=== PATIENT | female | born 2000 | race Caucasian/White ===

== ENCOUNTER 2022-12-13 04:41 | Emergency (ER) | payer OTHER ==
[~2022-12-13] VITALS: Ht 167.6 cm; Wt 63.5 kg
[2022-12-13 04:49] VITALS: BP_SYST 121; PULSE 75; RESP 18; TEMP 97.4; O2SAT 99
[2022-12-13] MEDS ORDERED: ONDANSETRON HCL 4 MG/2 ML VIAL IVP ONE ×2 (05:15→07:15)
[2022-12-13] MEDS ORDERED: NACL 0.9% 1,000 ML IV ONE (05:15)
[2022-12-13] MEDS ORDERED: MORPHINE 4 MG INJ. 4 MG/ML VIAL IVP ONE (05:15)
[2022-12-13 05:23] LABS: BILIRUBIN,URINE NEGATIVE (NEGATIVE); BLOOD, URINE NEGATIVE (NEGATIVE); CLARITY/URINE TURBID (CLEAR); COLOR,URINE YELLOW (YELLOW); GLUCOSE,URINE NEGATIVE (NEGATIVE); KETONES,URINE NEGATIVE (NEGATIVE); LEUKOCYTE ESTERASE ,URINE TRACE (NEGATIVE); NITRITE, URINE NEGATIVE (NEGATIVE); PROTEIN URINE NEGATIVE (NEGATIVE); UROBILINOGEN,URINE 0.2 (0.2-1.0)
[2022-12-13 05:42] LABS: BASOPHILS # (AUTO) 0.1 K/uL (0.0-0.2); BASOPHILS % (AUTO) 0.9 % (0.0-2.0); EOSINOPHILS # (AUTO) 1.3 K/uL (0.0-0.4); EOSINOPHILS % (AUTO) 11.6 % (0.0-4.0); HEMATOCRIT 35.5 % (36-48); HEMOGLOBIN 11.5 g/dL (12.0-16.0); LYMPHOCYTES # (AUTO) 2.8 K/uL (1.0-5.5); LYMPHOCYTES % (AUTO) 24.2 % (20.5-51.5); MEAN CORPUSCULAR HEMOGLOBIN 26 pg (27-31); MEAN CORPUSCULAR HGB CONC 32 % (32-36); MEAN CORPUSCULAR VOLUME 81 fL (79.0-98.0); MONOCYTES % (AUTO) 8.3 % (1.7-9.3); NEUTROPHILS # (AUTO) 6.4 K/uL (1.8-7.7); PLATELET COUNT (AUTO) 514 K/uL (130-430); RED BLOOD CELL COUNT(AUTO) 4.38 MIL/uL (4.2-6.2); RED CELL DISTRIBUTION WIDTH 14.7 % (9.0-15.0); WHITE BLOOD COUNT (AUTO) 11.6 K/uL (4.8-10.8)
[2022-12-13 05:59] LABS: BACTERIA,URINE MODERATE /HPF (None Seen); RBC,URINE 0-3 /HPF (0-3)
[2022-12-13 06:04] LABS: CALCIUM 9.7 mg/dL (8.4-11.0); CREATININE 0.71 mg/dL (0.55-1.30)
[2022-12-13 06:09] LABS: ALBUMIN 3.6 g/dL (3.4-4.8); TOTAL BILIRUBIN 0.2 mg/dL (0.0-1.0); TOTAL PROTEIN, SERUM 7.8 g/dL (6.4-8.3)
[2022-12-13] MEDS ORDERED: LR 1,000 ML IV STA (06:14)
[2022-12-13] MEDS ORDERED: POTASSIUM CHLORIDE 20 MEQ/PKT PACKET PO ONE (06:15)
[2022-12-13] MEDS ORDERED: METR-154 PO (07:52)
[2022-12-13] MEDS ORDERED: CIPR500T5 PO (07:52)
[2022-12-13 08:07] VITALS: BP_SYST 138; PULSE 93; RESP 16; TEMP 97.6; O2SAT 100
== END 2022-12-13 08:06 | disposition home or self-care (01) ==
LOC: SED 04:41
DX: N39.0 Urinary tract infection, site not specified (principal); R10.84 Generalized abdominal pain; R74.8 Abnormal levels of other serum enzymes; R11.10 Vomiting, unspecified; Z79.899 Other long term (current) drug therapy
CPT/HCPCS: 99285; 74176; 96374; 96361; 96375; 80053; 81001; 83690; 85025; 87086; 36415; 76376; 96376; 81025; 81000; 81015; J2405; J2270; J7030

== ENCOUNTER 2022-12-18 01:08 | Inpatient (IN) | payer OTHER ==
[2022-12-18] VITALS (7 sets, daily range): BP systolic 105–119; PULSE 66–85; RESP 16–18; TEMP 97.9–98.9; O2SAT 96–100
[~2022-12-18] VITALS: Ht 167.6 cm; Wt 64.4 kg
[~2022-12-18 01:08] MED LIST: CIPR500T5 PO; METR-154 PO
[2022-12-18 01:40] LABS: BILIRUBIN,URINE NEGATIVE (NEGATIVE); BLOOD, URINE NEGATIVE (NEGATIVE); COLOR,URINE YELLOW (YELLOW); GLUCOSE,URINE NEGATIVE (NEGATIVE); KETONES,URINE TRACE (NEGATIVE); LEUKOCYTE ESTERASE ,URINE TRACE (NEGATIVE); NITRITE, URINE NEGATIVE (NEGATIVE); PROTEIN URINE NEGATIVE (NEGATIVE); UROBILINOGEN,URINE 0.2 (0.2-1.0)
[2022-12-18] MEDS ORDERED: MORPHINE 4 MG INJ. 4 MG/ML VIAL IVP ONE ×2 (01:45→03:15)
[2022-12-18] MEDS ORDERED: ONDANSETRON HCL 4 MG/2 ML VIAL IVP ONE (01:45)
[2022-12-18] MEDS ORDERED: FAMOTIDINE PF 20 MG/2 ML VIAL IVP ONE (01:45)
[2022-12-18 01:54] LABS: CLARITY/URINE SLIGHTLY CLOUDY (CLEAR)
[2022-12-18 01:55] LABS: BACTERIA,URINE FEW /HPF (None Seen); RBC,URINE 0-3 /HPF (0-3)
[2022-12-18] MEDS ORDERED: NACL 0.9% 1,000 ML IV ONE ×2 (02:00→03:15)
[2022-12-18 02:26] LABS: BASOPHILS # (AUTO) 0.1 K/uL (0.0-0.2); EOSINOPHILS # (AUTO) 1.3 K/uL (0.0-0.4); EOSINOPHILS % (AUTO) 13.3 % (0.0-4.0); HEMATOCRIT 30.8 % (36-48); LYMPHOCYTES # (AUTO) 2.2 K/uL (1.0-5.5); MEAN CORPUSCULAR HEMOGLOBIN 26 pg (27-31); MEAN CORPUSCULAR HGB CONC 33 % (32-36); MEAN CORPUSCULAR VOLUME 81 fL (79.0-98.0); MONOCYTES % (AUTO) 9.5 % (1.7-9.3); NEUTROPHILS # (AUTO) 5.4 K/uL (1.8-7.7); NEUTROPHILS % (AUTO) 54.2 % (40.0-70.0); PLATELET COUNT (AUTO) 418 K/uL (130-430); RED BLOOD CELL COUNT(AUTO) 3.79 MIL/uL (4.2-6.2)
[2022-12-18 02:32] LABS: ALBUMIN 3.1 g/dL (3.4-4.8); CREATININE 0.91 mg/dL (0.55-1.30); POTASSIUM 3.4 mmol/L (3.5-5.1); TOTAL BILIRUBIN 0.1 mg/dL (0.0-1.0); TOTAL PROTEIN, SERUM 6.5 g/dL (6.4-8.3)
[2022-12-18] MEDS ORDERED: cefTRIAXone 1 GM IVPB PREMIX 50 ML IV ONE (03:15)
[2022-12-18] MEDS ORDERED: BIRTH CONTROL PO (03:28)
[2022-12-18] MEDS ORDERED: MORPHINE 2 MG/ML INJ. SYRINGE IVP PRN (03:30)
[2022-12-18] MEDS ORDERED: CIPR500T5 PO (03:34)
[2022-12-18] MEDS ORDERED: METR-154 PO (03:34)
[2022-12-18] MEDS: D5NS 1,000 ML IV SCH ×2 (04:39→13:30)
[2022-12-18] MEDS: PANTOPRAZOLE SODIUM 40 MG/VIAL (PROTONIX) IVP SCH ×2 (08:26→22:41)
[2022-12-18] MEDS: ONDANSETRON HCL 4 MG/2 ML VIAL IVP PRN (10:10)
[2022-12-18] MEDS: metroNIDAZOLE 500 mg/NS 100 ML IV SCH ×2 (15:15→22:41)
[2022-12-19] MEDS: D5NS 1,000 ML IV SCH ×3 (00:28→13:14)
[2022-12-19 00:55] VITALS: BP_SYST 120; PULSE 83; RESP 16; TEMP 98.6; O2SAT 99
[2022-12-19 01:43] LABS: BARBITURATE, URINE NEGATIVE (NEG <=200); BENZODIAZEPINE, URINE NEGATIVE (NEG <=150); CANNABINOID, URINE NEGATIVE (NEG <=50); COCAINE, URINE NEGATIVE (NEG <=150); METHAMPHETAMINES SCREEN,URINE NEGATIVE (NEG <=500); OPIATE, URINE NEGATIVE (NEG <=100); PHENCYCLIDINE SCREEN,URINE NEGATIVE (NEG <=25); URINE AMPHETAMINE NEGATIVE (NEG <=500); URINE METHADONE NEGATIVE (NEG <=200); URINE OXYCODONE SCREEN NEGATIVE (NEG <=100); URINE PROPOXYPHENE SCREEN NEGATIVE (NEG <=300)
[2022-12-19 01:44] LABS: UR TRICYCLIC ANTIDEPRESSANTS NEGATIVE (NEG <=300)
[2022-12-19 05:41] LABS: BASOPHILS # (AUTO) 0.1 K/uL (0.0-0.2); BASOPHILS % (AUTO) 1.1 % (0.0-2.0); EOSINOPHILS # (AUTO) 1.3 K/uL (0.0-0.4); EOSINOPHILS % (AUTO) 15.4 % (0.0-4.0); HEMATOCRIT 31.5 % (36-48); HEMOGLOBIN 9.9 g/dL (12.0-16.0); LYMPHOCYTES % (AUTO) 23.7 % (20.5-51.5); MEAN CORPUSCULAR HEMOGLOBIN 26 pg (27-31); MEAN CORPUSCULAR HGB CONC 31 % (32-36); MEAN CORPUSCULAR VOLUME 82 fL (79.0-98.0); MONOCYTES # (AUTO) 0.9 K/uL (0.0-1.0); NEUTROPHILS # (AUTO) 4.1 K/uL (1.8-7.7); NEUTROPHILS % (AUTO) 48.8 % (40.0-70.0); PLATELET COUNT (AUTO) 390 K/uL (130-430); RED BLOOD CELL COUNT(AUTO) 3.86 MIL/uL (4.2-6.2); WHITE BLOOD COUNT (AUTO) 8.3 K/uL (4.8-10.8)
[2022-12-19 05:56] LABS: CALCIUM 8.7 mg/dL (8.4-11.0); CREATININE 0.64 mg/dL (0.55-1.30)
[2022-12-19] MEDS: metroNIDAZOLE 500 mg/NS 100 ML IV SCH ×3 (06:50→22:43)
[2022-12-19 08:18] VITALS: BP_SYST 111; PULSE 67; RESP 18; TEMP 97.1; O2SAT 98
[2022-12-19] MEDS: PANTOPRAZOLE SODIUM 40 MG/VIAL (PROTONIX) IVP SCH ×2 (08:24→21:35)
[2022-12-19 11:18] VITALS: O2SAT 98
[2022-12-19 12:00] VITALS: BP_SYST 112; PULSE 76; RESP 16; TEMP 98.2; O2SAT 98
[2022-12-19 13:07] LABS: HEPATITIS B CORE AB, TOTAL Negative (Negative); HEPATITIS B SURFACE AG Negative (Negative)
[2022-12-19] MEDS ORDERED: ACETAMINOPHEN 500 MG TABLET PO PRN (14:00)
[2022-12-19 16:00] VITALS: BP_SYST 118; PULSE 72; RESP 16; TEMP 98.8; O2SAT 100
[2022-12-19] MEDS ORDERED: DICYCLOMINE HCL 10 MG/5 ML SOLUTION PO ONE (18:00)
[2022-12-19 20:00] VITALS: BP_SYST 110; PULSE 75; RESP 18; TEMP 98.4
[2022-12-19] MEDS: DICYCLOMINE HCL 10 MG/5 ML SOLUTION PO SCH (21:36)
[2022-12-20 00:15] VITALS: BP_SYST 107; PULSE 79; RESP 18; TEMP 98; O2SAT 98
[2022-12-20] MEDS: metroNIDAZOLE 500 mg/NS 100 ML IV SCH ×3 (06:35→22:14)
[2022-12-20] MEDS: D5NS 1,000 ML IV SCH ×2 (06:40→15:30)
[2022-12-20] MEDS ORDERED: METHYLPREDNISOLONE SOD SUCC 40 MG/ML VIAL IVP ONE (07:45)
[2022-12-20 08:24] VITALS: BP_SYST 116; PULSE 70; RESP 16; TEMP 97.7; O2SAT 98
[2022-12-20] MEDS: PANTOPRAZOLE SODIUM 40 MG/VIAL (PROTONIX) IVP SCH ×2 (08:26→21:06)
[2022-12-20] MEDS: DICYCLOMINE HCL 10 MG/5 ML SOLUTION PO SCH ×4 (08:27→21:06)
[2022-12-20] MEDS: ONDANSETRON HCL 4 MG/2 ML VIAL IVP PRN (08:28)
[2022-12-20 08:35] LABS: BASOPHILS # (AUTO) 0.1 K/uL (0.0-0.2); BASOPHILS % (AUTO) 1.3 % (0.0-2.0); EOSINOPHILS # (AUTO) 1.3 K/uL (0.0-0.4); EOSINOPHILS % (AUTO) 17.2 % (0.0-4.0); HEMATOCRIT 31.8 % (36-48); HEMOGLOBIN 10.2 g/dL (12.0-16.0); LYMPHOCYTES # (AUTO) 1.8 K/uL (1.0-5.5); LYMPHOCYTES % (AUTO) 25.2 % (20.5-51.5); MEAN CORPUSCULAR HEMOGLOBIN 26 pg (27-31); MEAN CORPUSCULAR HGB CONC 32 % (32-36); MEAN CORPUSCULAR VOLUME 81 fL (79.0-98.0); MONOCYTES # (AUTO) 0.7 K/uL (0.0-1.0); MONOCYTES % (AUTO) 9.8 % (1.7-9.3); NEUTROPHILS # (AUTO) 3.4 K/uL (1.8-7.7); NEUTROPHILS % (AUTO) 46.5 % (40.0-70.0); PLATELET COUNT (AUTO) 422 K/uL (130-430); RED BLOOD CELL COUNT(AUTO) 3.93 MIL/uL (4.2-6.2); WHITE BLOOD COUNT (AUTO) 7.3 K/uL (4.8-10.8)
[2022-12-20 08:43] LABS: CALCIUM 8.8 mg/dL (8.4-11.0); CREATININE 0.72 mg/dL (0.55-1.30); POTASSIUM 3.2 mmol/L (3.5-5.1)
[2022-12-20 09:06] LABS: QUANTIFERON TB GOLD Negative (Negative)
[2022-12-20] MEDS ORDERED: POTASSIUM CHLORIDE 20 MEQ TAB.PRT.SR PO ONE (09:30)
[2022-12-20] MEDS: METHYLPREDNISOLONE SOD SUCC 40 MG/ML VIAL IVP SCH ×2 (14:26→22:13)
[2022-12-20 16:11] VITALS: BP_SYST 116; PULSE 89; RESP 18; TEMP 97.5; O2SAT 98
[2022-12-20 20:00] VITALS: BP_SYST 107; PULSE 75; RESP 18; TEMP 97; O2SAT 98; O2SAT 99
[2022-12-21] MEDS: D5NS 1,000 ML IV SCH ×2 (01:30→04:07)
[2022-12-21 04:00] VITALS: BP_SYST 116; PULSE 80; RESP 18; TEMP 97.3; O2SAT 99
[2022-12-21] MEDS: METHYLPREDNISOLONE SOD SUCC 40 MG/ML VIAL IVP SCH ×3 (07:02→21:15)
[2022-12-21] MEDS: metroNIDAZOLE 500 mg/NS 100 ML IV SCH ×3 (07:02→21:15)
[2022-12-21 07:42] LABS: CALCIUM 9.5 mg/dL (8.4-11.0); CREATININE 0.85 mg/dL (0.55-1.30); POTASSIUM 3.8 mmol/L (3.5-5.1)
[2022-12-21 07:53] LABS: BASOPHILS % (AUTO) 0.1 % (0.0-2.0); HEMATOCRIT 37.2 % (36-48); HEMOGLOBIN 11.6 g/dL (12.0-16.0); LYMPHOCYTES # (AUTO) 1.5 K/uL (1.0-5.5); LYMPHOCYTES % (AUTO) 15.7 % (20.5-51.5); MEAN CORPUSCULAR HEMOGLOBIN 25 pg (27-31); MEAN CORPUSCULAR HGB CONC 31 % (32-36); MEAN CORPUSCULAR VOLUME 82 fL (79.0-98.0); MONOCYTES # (AUTO) 0.5 K/uL (0.0-1.0); MONOCYTES % (AUTO) 5.2 % (1.7-9.3); NEUTROPHILS # (AUTO) 7.5 K/uL (1.8-7.7); PLATELET COUNT (AUTO) 546 K/uL (130-430); RED BLOOD CELL COUNT(AUTO) 4.56 MIL/uL (4.2-6.2); RED CELL DISTRIBUTION WIDTH 14.8 % (9.0-15.0)
[2022-12-21 08:12] LABS: WHITE BLOOD COUNT (AUTO) 9.5 K/uL (4.8-10.8)
[2022-12-21] MEDS: DICYCLOMINE HCL 10 MG/5 ML SOLUTION PO SCH ×4 (08:54→21:15)
[2022-12-21] MEDS: PANTOPRAZOLE SODIUM 40 MG/VIAL (PROTONIX) IVP SCH ×2 (08:55→21:14)
[2022-12-21 08:59] VITALS: BP_SYST 106; PULSE 96; RESP 18; TEMP 96.9; O2SAT 100
[2022-12-21 18:00] VITALS: BP_SYST 113; PULSE 97; RESP 18; TEMP 98.1; O2SAT 97
[2022-12-21 20:00] VITALS: BP_SYST 106; PULSE 74; RESP 18; TEMP 98.2; O2SAT 97
[2022-12-22 00:50] VITALS: BP_SYST 116; PULSE 98; RESP 20; TEMP 99; O2SAT 98
[2022-12-22] MEDS: D5NS 1,000 ML IV SCH ×3 (03:25→08:43)
[2022-12-22] MEDS: METHYLPREDNISOLONE SOD SUCC 40 MG/ML VIAL IVP SCH (05:47)
[2022-12-22] MEDS: metroNIDAZOLE 500 mg/NS 100 ML IV SCH ×2 (05:47→13:19)
[2022-12-22 07:18] LABS: CALCIUM 9.1 mg/dL (8.4-11.0); CREATININE 0.72 mg/dL (0.55-1.30); POTASSIUM 3.9 mmol/L (3.5-5.1)
[2022-12-22 07:51] LABS: BASOPHILS % (AUTO) 0.3 % (0.0-2.0); EOSINOPHILS % (AUTO) 0.1 % (0.0-4.0); HEMATOCRIT 34.5 % (36-48); HEMOGLOBIN 10.9 g/dL (12.0-16.0); LYMPHOCYTES # (AUTO) 1.9 K/uL (1.0-5.5); LYMPHOCYTES % (AUTO) 18.4 % (20.5-51.5); MEAN CORPUSCULAR HEMOGLOBIN 26 pg (27-31); MEAN CORPUSCULAR HGB CONC 32 % (32-36); MEAN CORPUSCULAR VOLUME 81 fL (79.0-98.0); MONOCYTES % (AUTO) 9.9 % (1.7-9.3); NEUTROPHILS # (AUTO) 7.4 K/uL (1.8-7.7); NEUTROPHILS % (AUTO) 71.3 % (40.0-70.0); PLATELET COUNT (AUTO) 495 K/uL (130-430); RED BLOOD CELL COUNT(AUTO) 4.26 MIL/uL (4.2-6.2); RED CELL DISTRIBUTION WIDTH 14.8 % (9.0-15.0); WHITE BLOOD COUNT (AUTO) 10.3 K/uL (4.8-10.8)
[2022-12-22] MEDS: PANTOPRAZOLE SODIUM 40 MG/VIAL (PROTONIX) IVP SCH (08:23)
[2022-12-22] MEDS: DICYCLOMINE HCL 10 MG/5 ML SOLUTION PO SCH ×2 (08:24→13:19)
[2022-12-22 08:31] VITALS: BP_SYST 117; PULSE 64; RESP 17; TEMP 97.5; O2SAT 100
[2022-12-22] MEDS ORDERED: predniSONE 20 MG TABLET PO ONE (10:00)
[2022-12-22 12:00] VITALS: BP_SYST 113; PULSE 78; RESP 16; TEMP 98.5; O2SAT 78
[2022-12-22] MEDS ORDERED: PRED20TA PO (13:49)
[2022-12-22 15:51] VITALS: BP_SYST 113; PULSE 78; RESP 16; TEMP 98.5; O2SAT 100
[2022-12-23] MEDS ORDERED: predniSONE 20 MG TABLET PO SCH (09:00)
== END 2022-12-22 16:45 | disposition home or self-care (01) | DRG 385 ==
LOC: SED 01:08 → SMU 03:25
PROVIDERS: ADMIT General Practice; ATTEND General Practice
DX: K51.911 Ulcerative colitis, unspecified with rectal bleeding (principal); K85.90 Acute pancreatitis without necrosis or infection, unspecified; E44.1 Mild protein-calorie malnutrition; D62 Acute posthemorrhagic anemia; E87.6 Hypokalemia; Z80.0 Family history of malignant neoplasm of digestive organs; Z68.22 Body mass index [BMI] 22.0-22.9, adult
CPT/HCPCS: 36415; 76376; 80048; 80053; 80307; 81000; 81001; 81015; 82787; 83037; 83605; 83690; 83735; 85025; 86480; 86704; 86706; 87040; 87045-TC; 87046; 87086; 87230-TC; 87340; 99285; C9113; J0696; J1030; J1956; J2270; J2405; J3490; J7512; Q9967